=== PATIENT | female | born 2005 ===

== ENCOUNTER 2023-04-21 13:23 | Day surgery (SDC) | payer OTHER ==
[2023-04-21 13:41] VITALS: BMI 38.3
[2023-04-21] MEDS ORDERED: hydrALAZINE 20 MG/ML VIAL SLOW IVP PRN (14:16)
[2023-04-21 15:29] LABS: SARS-CoV-2 NAA Rapid Test Not Detected (NotDetected)
== END 2023-04-21 15:45 | disposition home or self-care (01) ==
LOC: CSHLD/OP 13:23
PROVIDERS: ATTEND Obstetrics & Gynecology
DX: O36.8130 Decreased fetal movements, third trimester, not applicable or unspecified (principal); Z79.899 Other long term (current) drug therapy; Z3A.30 30 weeks gestation of pregnancy
CPT/HCPCS: 76819; 87081; 87430

== ENCOUNTER 2023-06-02 23:16 | Day surgery (SDC) | payer OTHER ==
[2023-06-02 23:28] VITALS: BMI 42.4
[2023-06-02] MEDS ORDERED: hydrALAZINE 20 MG/ML VIAL SLOW IVP PRN (23:47)
[2023-06-03 00:30] LABS: #Eosinphils 0.1 10x3/uL (0.0-0.5); #Monocytes 0.7 10x3/uL (0.0-1.1); %Basophils 0.3 % (0.0-2.0); %Eosinophils 0.6 % (0.0-6.0); %Lymphocytes 16.2 % (18.0-47.0); %Monocytes 5.5 % (0.0-10.0); %Neutrophils 76.8 % (40.0-75.0); Hematocrit 33.7 % (34.9-44.5); Hemoglobin 11.4 g/dL (12.0-15.5); Mean Corpuscular HGB CONC 33.8 g/dL (32.0-36.0); Mean Corpuscular Hemoglobin 30.7 pg (27.0-33.0); Mean Corpuscular Volume 90.8 fl (81.6-98.3); Platelet Count 325 10x3/uL (150-450); RBC Distribution Width 13.5 % (11.5-14.5); Red Blood Cell (RBC) Count 3.71 10x6/uL (3.90-5.03); White Blood Cell (WBC) Count 11.8 10x3/uL (3.5-10.5)
[2023-06-03] MEDS ORDERED: Acetaminophen 500 MG TAB PO SCH (00:30)
[2023-06-03] MEDS ORDERED: Metoclopramide HCl 10 MG TAB PO SCH (00:30)
[2023-06-03] MEDS ORDERED: diphenhydrAMINE 25 MG CAP PO SCH (00:30)
[2023-06-03 00:36] LABS: Creatinine, Urine 190.46 mg/dL (47-110)
[2023-06-03 00:47] LABS: ALT (SGPT) 12 U/L (8-55); AST (SGOT) 16 U/L (5-30); Albumin 3.1 g/dL (3.5-5.0); Alkaline Phosphatase 151 U/L (40-100); Anion Gap 13 mmol/L (10-20); BUN (Urea Nitrogen) 14 mg/dL (8.4-21.0); Bilirubin, Total 0.2 mg/dL (0.2-1.2); Calc. Creatinine Clearance 192 mL/min (70-130); Calcium 9.1 mg/dL (7.8-10.44); Carbon Dioxide 21 mmol/L (22-29); Chloride 108 mmol/L (98-107); Estimated GFR 126; Glucose 99 mg/dL (70-105); Lipase 56 U/L (8-78); Potassium 4.2 mmol/L (3.5-5.1); Protein, Total 6.1 g/dL (6.0-8.3); Sodium 138 mmol/L (136-145)
== END 2023-06-03 01:15 | disposition home or self-care (01) ==
LOC: CSHLD/OP 23:16
PROVIDERS: ATTEND Family Medicine
DX: O99.891 Other specified diseases and conditions complicating pregnancy (principal); O14.93 Unspecified pre-eclampsia, third trimester; R51.9 Headache, unspecified; R10.11 Right upper quadrant pain; Z79.899 Other long term (current) drug therapy; Z88.0 Allergy status to penicillin; Z3A.36 36 weeks gestation of pregnancy
CPT/HCPCS: 80053; 82570; 83690; 84156; 85025; 99285